=== PATIENT | female | born 2005 | race Hispanic/Latino ===

== ENCOUNTER 2024-03-30 18:27 | Emergency (ER) | payer SELFPAY ==
[~2024-03-30] VITALS: Ht 170.2 cm; Wt 90.7 kg
[2024-03-30 18:50] VITALS: TEMP 98.5
[2024-03-30 19:44] LABS: BASOPHILS # (AUTO) 0.1 (0.0-0.1); BASOPHILS % 0.5 % (0.0-1.0); EOSINOPHILS # (AUTO) 0.1 (0.0-0.4); EOSINOPHILS % 0.6 % (0.0-6.0); HEMATOCRIT 38.6 % (34.2-44.1); HEMOGLOBIN 12.8 g/dL (12.0-16.0); LYMPHOCYTES # (AUTO) 3.5 (1.0-3.2); LYMPHOCYTES % 25.1 % (18.0-39.1); MEAN CORPUSCULAR HGB CONC 33.2 g/dL (31-35); MEAN CORPUSCULAR VOLUME 90.4 fL (81-99); MONOCYTES # (AUTO) 1.5 (0.2-0.8); MONOCYTES % 10.6 % (4.4-11.3); NEUTROPHILS # (AUTO) 8.8 (2.1-6.9); NEUTROPHILS % 62.8 % (38.7-80.0); PLATELET COUNT 258 x10e3/uL (140-360); RED BLOOD COUNT 4.27 x10e6/uL (3.6-5.1); RED CELL DISTRIBUTION WIDTH 12.4 % (11.7-14.4); WHITE BLOOD COUNT 13.95 x10e3/uL (4.8-10.8)
[2024-03-30 19:47] LABS: BILIRUBIN,URINE NEGATIVE (NEGATIVE); CLARITY,URINE SL CLOUDY (CLEAR); COLOR,URINE YELLOW (YELLOW); GLUCOSE, URINE NEGATIVE (NEGATIVE); KETONES,URINE NEGATIVE (NEGATIVE); LEUKOCYTE ESTERASE ,URINE MODERATE (NEGATIVE); NITRITE,URINE NEGATIVE (NEGATIVE); PH,URINE 6.5 (5 - 7); PROTEIN,URINE DIPSTICK NEGATIVE (NEGATIVE); URINE UROBILINOGEN 0.2 mg/dL (0.2 - 1)
[2024-03-30 19:55] LABS: ANION GAP 14.6 mmol/L (8-16); CALCIUM 9.8 mg/dL (8.4-10.2); CREATININE, SERUM 1.14 mg/dL (0.57-1.11); POTASSIUM 3.6 mmol/L (3.5-5.1)
[2024-03-30 19:58] LABS: AMORPHOUS SEDIMENT,URINE FEW (FEW); BACTERIA,URINE MODERATE /HPF; EPITHELIAL CELLS,URINE FEW /LPF; RBC,URINE 0-5 /HPF (0-5)
[2024-03-30 19:59] LABS: TRICHOMONAS,URINE FEW
[2024-03-30] MEDS ORDERED: IOPAMIDOL 370 MG/ML 100 ML INFUS..BTL INJ ONE (20:13)
[2024-03-30] MEDS: KETOROLAC TROMETHAMINE 30 MG/ML VIAL IV STA (20:25)
[2024-03-30 22:00] VITALS: PULSE 86; RESP 16
[2024-03-30] MEDS: METRONIDAZOLE 500 MG TAB PO ONE (22:13)
[2024-03-30] MEDS ORDERED: CEFTRIAXONE 1 GM VIAL ONE (22:16)
[2024-03-30] MEDS ORDERED: METRONIDAZOLE 500 MG TAB ONE (22:16)
[2024-03-31 00:02] VITALS: BP 142/93; PULSE 95; RESP 17; TEMP 99.1; O2SAT 98
== END 2024-03-31 00:04 | disposition other institution (70) ==
LOC: ER 19:08
DX: R10.30 Lower abdominal pain, unspecified (principal); N13.2 Hydronephrosis with renal and ureteral calculous obstruction; A59.01 Trichomonal vulvovaginitis; D72.829 Elevated white blood cell count, unspecified; K76.0 Fatty (change of) liver, not elsewhere classified
CPT/HCPCS: 36415; 74177; 80048; 81001; 84702; 85025; 99284; J0696; J1885; Q9967

== ENCOUNTER 2024-09-08 14:01 | Emergency (ER) | payer OTHER ==
[~2024-09-08] VITALS: Ht 170.2 cm; Wt 90.7 kg
[2024-09-08 14:15] VITALS: TEMP 98.9
[2024-09-08] MEDS: SODIUM CHLORIDE 0.9% 1000ML 1,000 ML IV STA (15:05)
[2024-09-08] MEDS: ONDANSETRON HCL INJ 2MG/ML 2ML 2 MG/ML VIAL IV PRN (15:05)
[2024-09-08 15:07] LABS: CLARITY,URINE TURBID (CLEAR); COLOR,URINE PINK (YELLOW); GLUCOSE, URINE NEGATIVE (NEGATIVE); KETONES,URINE NEGATIVE (NEGATIVE); LEUKOCYTE ESTERASE ,URINE NEGATIVE (NEGATIVE); NITRITE,URINE NEGATIVE (NEGATIVE); PH,URINE 8 (5 - 7); PROTEIN,URINE DIPSTICK TRACE (NEGATIVE)
[2024-09-08 15:08] LABS: BILIRUBIN,URINE NEGATIVE (NEGATIVE); URINE UROBILINOGEN 0.2 mg/dL (0.2 - 1)
[2024-09-08 15:09] LABS: BACTERIA,URINE FEW /HPF; RBC,URINE >50 /HPF (0-5); WBC,URINE (MAN) 0-5 /HPF (0-5)
[2024-09-08 15:10] LABS: EPITHELIAL CELLS,URINE FEW /LPF
[2024-09-08 15:18] LABS: ALBUMIN 3.9 g/dL (3.5-5.0); ALBUMIN/GLOBULIN RATIO 1.1 (0.8-2.0); ANION GAP 16.8 mmol/L (8-16); BILIRUBIN,TOTAL 0.5 mg/dL (0.2-1.2); CALCIUM 8.8 mg/dL (8.4-10.2); CREATININE, SERUM 0.81 mg/dL (0.57-1.11); POTASSIUM 3.8 mmol/L (3.5-5.1); TOTAL PROTEIN 7.3 g/dL (6.5-8.1)
[2024-09-08] MEDS ORDERED: IOPAMIDOL 370 MG/ML 100 ML INFUS..BTL INJ ONE (15:19)
[2024-09-08 15:26] LABS: BASOPHILS # (AUTO) 0.1 (0.0-0.1); BASOPHILS % 0.4 % (0.0-1.0); EOSINOPHILS % 0.1 % (0.0-6.0); HEMATOCRIT 33.4 % (34.2-44.1); HEMOGLOBIN 11.4 g/dL (12.0-16.0); LYMPHOCYTES # (AUTO) 1.6 (1.0-3.2); LYMPHOCYTES % 11.5 % (18.0-39.1); MEAN CORPUSCULAR HEMOGLOBIN 29.9 pg (28-32); MEAN CORPUSCULAR HGB CONC 34.1 g/dL (31-35); MEAN CORPUSCULAR VOLUME 87.7 fL (81-99); MONOCYTES # (AUTO) 1.2 (0.2-0.8); MONOCYTES % 8.9 % (4.4-11.3); NEUTROPHILS # (AUTO) 10.7 (2.1-6.9); NEUTROPHILS % 78.7 % (38.7-80.0); PLATELET COUNT 240 x10e3/uL (140-360); RED BLOOD COUNT 3.81 x10e6/uL (3.6-5.1); RED CELL DISTRIBUTION WIDTH 12.4 % (11.7-14.4); WHITE BLOOD COUNT 13.52 x10e3/uL (4.8-10.8)
[2024-09-08 16:45] VITALS: PULSE 84; RESP 18; O2SAT 100
[2024-09-08] MEDS ORDERED: ULTRAM 50MG50 MG PO (16:45)
[2024-09-08] MEDS ORDERED: ONDANSETRON ODT4 MG PO (16:45)
== END 2024-09-08 16:59 | disposition home or self-care (01) ==
LOC: ER 14:13
DX: R10.32 Left lower quadrant pain (principal); N20.1 Calculus of ureter
CPT/HCPCS: 36415; 74177; 80053; 81001; 83690; 84702; 85025; 99284; J2405; J7030; Q9967